=== PATIENT | female | born 1945 | race Caucasian/White ===

== ENCOUNTER 2021-11-17 06:59 | Emergency (ER) | payer MEDICARE, SELFPAY ==
[2021-11-17 07:01] VITALS: BP 187/90; PULSE 122; RESP 20; TEMP 37; O2SAT 95; BMI 27.4
--- NOTE | 2021-11-17 07:52 | ECG_ITS ---
Test Reason : ABNL LABS Blood Pressure : / mmHG Vent. Rate : 098 BPM Atrial Rate : 098 BPM P-R Int : 136 ms QRS Dur : 074 ms QT Int : 328 ms P-R-T Axes : 073 034 066 degrees QTc Int : 418 ms Normal sinus rhythm with sinus arrhythmia Possible Left atrial enlargement Borderline ECG When compared with ECG of 13-AUG-2016 10:25, No significant change was found Referred By: Regina Gaona Electronically Signed By:VERNON HOWARD
--- NOTE | 2021-11-17 08:38 | ED_ITS ---
HPI - Recheck/Abnormal Lab/Rx General Chief Complaint: Recheck/Abnormal Lab/Rx Stated Complaint: blood work to check potassium Time Seen by Provider: 11/17/21 07:52 Source: patient Mode of arrival: ambulatory Limitations: no limitations History of Present Illness HPI narrative: 76-year-old female with history of hypertension and hyperlipidemia presents to the ER for evaluation of hyperkalemia on routine labs that were done yesterday by her primary care doctor. She reports she has been on lisinopril for several years and never had an issue with high potassium. She does not have any symptoms, including no chest pain, no shortness of breath, no muscle aches or cramping. She has been eating and drinking normally. No changes in her daily routine or diet. MD complaint: abnormal lab Initial visit (ago): day(s) Returns today for: called because of abnormal lab/test Description of abnormal result: Hyperkalemia, unknown value Symptoms since prior visit: no new symptoms Context: called for abnormal lab result Associated symptoms: none Related Data Allergies Allergy/AdvReac Type Severity Reaction Status Date / Time No Known Allergies Allergy Unverified 12/23/19 14:56 [No Known Allergies*] Review of Systems Review of Systems: Constitutional: No Fever, No Chills ENT/Mouth: No sore throat, No Rhinorrhea, No Swallowing Difficulty Cardiovascular: No Chest Pain, No SOB, No Orthopnea, No Edema Respiratory: No Cough, No Sputum, No Wheezing, No dyspnea Gastrointestinal: No Nausea, No Vomiting, No Diarrhea, No abdominal Pain Genitourinary: No Dysuria, No Urinary Frequency, No Hematuria Musculoskeletal: No joint pain, No Myalgias Skin: No Skin Lesions, No rash Neuro: No Weakness, No Numbness, No Dizziness, No Headache Psych: No Anxiety/Panic, No Depression Heme/Lymph: No Bruising, No Lymphadenopathy Endocrine: No Polyuria, No Polydipsia PMFSH Social History Social History Patient Tobacco Use Status: Former Tobacco user Use of substances other than those prescribed or required for medical reasons: No Advance Directives: Yes Advance Directives Information Provided: Yes Advance Directives on File: No Physical Exam Vital Signs: Vital Signs: Last Vital Signs Temp 98.6 F 11/17/21 07:01 Pulse 82 11/17/21 09:01 Resp 16 11/17/21 09:01 BP 153/83 H 11/17/21 09:01 Pulse Ox 96 11/17/21 09:01 O2 Del Method 11/17/21 09:01 BMI result Body Mass Index 27.4 Appearance: Alert. Oriented X3. No acute distress. Eyes: Pupils equal, round and reactive to light. ENT: Pharynx normal. Neck: Normal inspection. Neck supple. CVS: Normal heart rate and rhythm. Pulses normal. Respiratory: No respiratory distress. Breath sounds normal. Abdomen: Soft and nontender. +BS x4 Skin: Skin warm and dry. Normal skin color. Normal skin turgor. No rashes. Extremities: No lower extremity edema. Neuro: Oriented X 3. No motor deficit. No sensory deficit. Course Course Course Narrative: 76-year-old female with history of hypertension hyperlipidemia presents to the ER for evaluation of hyperkalemia. Unknown lab value that was drawn yesterday. Her EKG has very slight new peaked T-waves compared to prior EKG in 2017. She is tachycardic on arrival, most likely due to anxiety. Her heart rates have normalized. Will plan to recheck her potassium here, start IV fluids now. Reevaluation(s) Reevaluation #1: Patient's lab workup is returning unremarkable. Her potassium is 4.2. Suspect that her hyperkalemia that was noted on lab work yesterday was due to hemolysis. Patient reports of her bottom as had a hard time and was shaking the tube after the blood was drawn. At this time patient is stable for discharge home, safe to continue her lisinopril at this time. She has appoint with her PCP on Friday will follow-up with them. MDM - Recheck/Abnormal Lab/Rx Medical Records Attestation: I reviewed the patient's medical records. Lab Data Attestation: I reviewed the patient's lab results. Result diagrams: 11/17/21 08:36 11/17/21 08:36 Labs: Lab Results 11/17/21 11/17/21 Range/Units 08:36 08:36 WBC 6.2 (4.8-10.8) X10*3/uL RBC 4.54 (4.20-5.50) X10*6/uL Hgb 14.2 (12.0-16.0) g/dl Hct 44.8 (37.0-47.0) % MCV 98.7 H (80.0-98.0) fL MCH 31.3 (27.0-33.0) pg MCHC 31.7 (31.0-35.0) g/dl RDW 13.7 (11.0-16.0) % Plt Count 237 (160-400) X10*3/uL MPV 9.6 (9.4-12.3) fL Immature Gran % (Auto) 0.3 (0.0-0.4) % Neut % (Auto) 78.8 H (45-73) % Lymph % (Auto) 9.6 L (20-40) % [place] % (Auto) 8.6 (2-11) % Eos % (Auto) 1.9 (0-4) % Baso % (Auto) 0.8 (0-2) % Lymph # (Auto) 0.6 L (1.2-4.9) X10*3/uL [place] # (Auto) 0.5 (0.1-1.2) X10*3/uL Eos # (Auto) 0.1 (0.0-0.4) X10*3/uL Baso # (Auto) 0.1 (0.0-0.2) X10*3/uL Abs Immat Gran (auto) 0.02 (0.00-0.03) X10*3/uL Absolute Neuts (auto) 4.9 (2.0-8.3) x10*3/uL Absolute Nucleated RBC 0.000 (0.0-0.012) X10*3/uL Nucleated RBC % (auto) 0.0 (0.0-0.2) /100WBC Sodium 142 (135-145) mmol/L Potassium 4.2 (3.3-5.1) mmol/L Chloride 105 (96-108) mmol/L Carbon Dioxide 24 (22-29) mmol/L Anion Gap 17 (12-20) BUN 13 (9-16) mg/dL Creatinine 0.83 (0.5-1.4) mg/dL Estim Creat Clear Calc 60.2 Estimated GFR > 60 Random Glucose 119 H (60-115) mg/dL Calcium 9.2 (8.4-10.2) mg/dL ECG Data Attestation: I personally reviewed and interpreted this ECG as follows: ECG interpretation date: 11/17/21 ECG interpretation time: 09:09 Prior ECG tracings: available for review Interpretation: Normal sinus rhythm with sinus arrhythmia, ventricular rate 90 beats per minute, normal RI interval, normal QTC, mildly elevated peaked T-wave in lead to, V3, V4, V5. Critical Care Time Critical Care Time Critical Care Time: No Discharge Plan Discharge Clinical Impression: Hypertension Patient Disposition: Home, Self-Care Instructions: Chronic Hypertension (ED) Additional Instructions: Your lab work today was unremarkable, including a potassium that was normal at 4.2. Recommend following up with her primary get care doctor as scheduled on Friday. It is safe for you to continue all of your previously prescribed medications. If you develop new or worsening symptoms call 911 or come back to the ER for further evaluation. Referrals: Lilia Cabrera CNP [Primary Care Provider] - (Follow-up hyperkalemia)
[2021-11-17 08:41] LABS: MANUAL DIFF FLAG NO
[2021-11-17 08:43] LABS: Basophils Absolute Auto 0.1 X10*3/uL (0.0-0.2); Basophils Percent Auto 0.8 % (0-2); Eosinophils Absolute Auto 0.1 X10*3/uL (0.0-0.4); Eosinophils Percent Auto 1.9 % (0-4); Hematocrit 44.8 % (37.0-47.0); Hemoglobin 14.2 g/dl (12.0-16.0); Imm Gran Abs Auto 0.02 X10*3/uL (0.00-0.03); Imm Gran Pct Auto 0.3 % (0.0-0.4); Lymphocytes Absolute Auto 0.6 X10*3/uL (1.2-4.9); Lymphocytes Percent Auto 9.6 % (20-40); Mean Corpuscular HGB Conc 31.7 g/dl (31.0-35.0); Mean Corpuscular Hemoglobin 31.3 pg (27.0-33.0); Mean Corpuscular Volume 98.7 fL (80.0-98.0); Mean Platelet Volume 9.6 fL (9.4-12.3); Monocytes Absolute Auto 0.5 X10*3/uL (0.1-1.2); Monocytes Percent Auto 8.6 % (2-11); Neutrophils Absolute Auto 4.9 x10*3/uL (2.0-8.3); Neutrophils Percent Auto 78.8 % (45-73); Platelet Count 237 X10*3/uL (160-400); Red Blood Count 4.54 X10*6/uL (4.20-5.50); Red Cell Distribution Width 13.7 % (11.0-16.0); White Blood Count 6.2 X10*3/uL (4.8-10.8)
[2021-11-17] MEDS: 0.9 % Sodium Chloride 1,000 ML 999 ML IVCONT (08:58)
[2021-11-17] MEDS: Calcium Gluconate/NaCl,Iso-Osm 1 GM/50 ML PLAST..BAG IV (08:58)
[2021-11-17 08:59] LABS: Anion Gap 17 (12-20); Blood Urea Nitrogen 13 mg/dL (9-16); Calcium 9.2 mg/dL (8.4-10.2); Carbon Dioxide 24 mmol/L (22-29); Chloride 105 mmol/L (96-108); Creatinine Clr Calc Pharmacy 60.2; Estimated Glomerular Filt Rate > 60; Glucose Random 119 mg/dL (60-115); Potassium 4.2 mmol/L (3.3-5.1); Sodium 142 mmol/L (135-145)
[2021-11-17 09:01] VITALS: BP 153/83; PULSE 82; RESP 16; O2SAT 96
== END 2021-11-17 09:25 | disposition home or self-care (01) ==
PROVIDERS: Emergency Provider Student in an Organized Health Care Education/Training Program; PCP Nurse Practitioner Family
DX: I10 Essential (primary) hypertension (principal); R00.0 Tachycardia, unspecified; E78.5 Hyperlipidemia, unspecified; Z79.899 Other long term (current) drug therapy; Z87.891 Personal history of nicotine dependence
CPT/HCPCS: 36415; 80048; 85025; 93005; 96365; 99284; 99285; J0610

== ENCOUNTER 2022-02-18 10:14 | Emergency (ER) | payer MEDICARE, SELFPAY ==
--- NOTE | ~2022-02-18 | XR_ITS ---
EXAMINATION: XR HIP, RIGHT CLINICAL INFORMATION: Pain and inability to bear weight. COMPARISON: None TECHNIQUE: AP and frog-leg lateral views of the right hip and an AP view of the pelvis are submitted. FINDINGS: Bones and soft tissues are normal. No fracture. Alignment is anatomic. The bilateral hip joint spaces are well-maintained. There is a small enthesophyte arising from the greater tuberosity of the proximal right femur. The sacroiliac joints are symmetric and intact. The pubic symphysis is intact. There are iliofemoral atherosclerotic calcifications. XR/XR hip RT w PEL1V IMPRESSION: Unremarkable right hip and AP pelvis.
[2022-02-18 10:30] VITALS: BP 180/84; PULSE 92; RESP 17; TEMP 36.6; O2SAT 98; BMI 25.0
--- NOTE | 2022-02-18 13:11 | ED.EXTPRO ---
HPI - Extremity Problem General Chief complaint: Extremity Injury, Upper Stated complaint: R leg pain Time Seen by Provider: 02/18/22 13:11 Source: patient Mode of arrival: wheelchair Limitations: no limitations History of Present Illness HPI Narrative: Patient is a 76 year old assigned female at with no reported medical history presenting to the emergency department today with right hip pain. Patient states that approximately 1 year ago, she fell down some stairs and landed on her right side. Patient states that she was evaluated then and told that everything was OK. Patient states that it had gotten better but over the last few days, her right hip has been getting painful. Patient states it is hurtful to walk on it. Patient denies any dizziness, lightheadedness, abdominal pain, nausea, vomiting, fever, chills, blurry vision, double vision, loss of vision, chest pain, difficulty breathing, shortness of breath, back pain, night sweats, pain with urination, increased urinary frequency, increased urinary urgency, blood in her urine or stool, syncope or a near syncopal episode, recent trauma or falls, bowel incontinence, bladder incontinence, bowel retention, bladder retention, or any other complaints at this time. MD Complaint: extremity pain Onset (ago): day(s) Pain Consistency: constant Location: right and lower extremity Severity scale (1-10): 4 Quality: aching and dull Radiation: none Relieving factors: nothing Exacerbating factors: range of motion, weight bearing and walking Associated symptoms: denies other symptoms Related Data Previous Rx's Medication Instructions Recorded prednisone 20 mg tablet 20 mg PO DAILY 7 days #7 tabs 02/18/22 Allergies Allergy/AdvReac Type Severity Reaction Status Date / Time No Known Allergies Allergy Unverified 12/23/19 14:56 [No Known Allergies*] Review of Systems Constitutional: Constitutional: Reports no additional constitutional complaints, Denies chills, Denies fever(s) and Denies night sweats Eyes: Eyes: Reports no additional eye complaints, Denies blurry vision, Denies change in vision, Denies diplopia, Denies eye discharge, Denies loss of vision and Denies eye pain ENT: Denies dizziness Cardiovascular: Cardiovascular: Reports no additional cardiovascular complaints, Denies chest pain, Denies lightheadedness, Denies Loss of Consciousness and Denies dyspnea Respiratory: Respiratory: Reports no additional respiratory complaints and Denies dyspnea Gastrointestinal: Gastrointestinal: Reports no additional gastrointestinal complaints, Denies abdominal pain, Denies melena, Denies hematochezia, Denies change in bowel habits and Denies change in stool character Genitourinary: Genitourinary: Denies hematuria, Denies urinary frequency, Denies dysuria, Denies urinary incontinence, Denies urinary hesitancy and Denies urinary urgency Musculoskeletal: Musculoskeletal: Reports no additional musculoskeletal complaints, Denies numbness and Denies tingling Comments: right hip pain Neurologic: Denies dizziness, Denies loss of vision, Denies numbness and Denies tingling Psychiatric: Psychiatric: Reports no additional psychiatric complaints Endocrine: Endocrine: Reports no additional endocrine complaints Hematologic/Lymphatic: Hematologic/Lymphatic: Reports no additional hematologic/lymphatic complaints Allergic/Immunologic: Allergic/Immunologic: Reports no additional allergic/immunologic complaints PMFSH Past Medical History Attestation statement: The following information was validated with the patient. Source: old records reviewed Social History Social History Patient Tobacco Use Status: Former Tobacco user Advance Directives: Yes Advance Directives Information Provided: Yes Advance Directives on File: No Physical Exam Vital Signs: Vital Signs: Last Vital Signs Temp 98 F 02/18/22 10:30 Pulse 92 02/18/22 10:30 Resp 17 02/18/22 10:30 BP 180/84 H 02/18/22 10:30 Pulse Ox 98 02/18/22 10:30 O2 Del Method 02/18/22 10:30 BMI result Body Mass Index 25.0 Const: General: cooperative, no acute distress, alert and awake Nutritional Appearance: well nourished Orientation/consciousness: patient oriented x3 Limitations: no limitations HEENT: Head: Yes normal to inspection and Yes atraumatic Ears: hearing grossly normal bilaterally and external ears normal General nose exam: Normal external nose present, no nasal discharge noted and no epistaxis Face and sinus: Yes normal facial exam, No abrasion and No laceration Mouth: Normal oral and palatal mucosa present, no drooling and no muffled voice Eyes: General: appearance normal, both eyes and all related structures Periorbital: periorbital findings normal Eyelids: Yes eyelids normal Conjunctivae: conjunctivae normal Pupils: Equal, round and reactive pupils present EOM: EOMs intact bilaterally Neck: Neck: Yes normal visual inspection, Yes full ROM and Yes no lymphadenopathy Chest: Chest palpation & inspection: normal inspection of the chest Resp: Effort & Inspection: normal respiratory effort and able to speak in complete sentences Auscultation: clear to auscultation bilaterally Cardio: Rate: regular rate Rhythm: regular rhythm GI: Inspection: Yes normal to inspection Neuro: General: patient oriented x3 and moves all extremities Cranial nerves: Yes Equal, round and reactive pupils present Cognition (Neuro): normal cognition Motor exam (neuro): 5/5 motor strength present throughout Sensory Exam: Normal double simultaneous stimulation for sensation Coordination: [id number] test normal Extrem: General: Yes normal to inspection, Yes full ROM and Yes capillary refill normal Psych: Appearance: grossly normal Mental Status: mental status grossly normal Affect: normal affect Attitude: cooperative Thought process: Normal thought process present Thought content: Normal thought content present Insight: Good insight present (Psych) Medications Administered Discontinued Medications Generic Name Dose Route Start Last Admin Trade Name Freq PRN Reason Stop Dose Admin Prednisone 20 mg 02/18/22 13:26 02/18/22 13:37 Prednisone 20 Mg Tablet PO 02/18/22 13:27 20 mg ONCE ONE Administration MDM - Extremity (Nontraumatic) MDM Narrative Medical decision making narrative: Patient is a 76 year old assigned female at with no reported medical history presenting to the emergency department today with right hip pain. Patient's physical exam was unremarkable. Patient's right hip x-ray showed no acute process. Patient's clinical presentation is most consistent with worsening arthritis. I explained my physical exam findings as well as all test results to the patient. I answered all questions asked by the patient. I stressed the importance of the patient taking her medication as prescribed. I stressed the importance of the patient following up with her primary care provider and an orthopedic provider. I stressed the importance of the patient returning to the emergency department immediately if her symptoms were to worsen or if she were to develop any dizziness, shortness of breath, difficulty breathing, chest pain, blurry vision, loss of vision, nausea, vomiting, abdominal pain, fever, chills, back pain, or any other complaints. Patient verbalized agreement and understanding with this treatment plan and discharge. Medical Records Attestation: I reviewed the patient's medical records. Imaging Data Right hip x-ray: Attestation: I personally reviewed and interpreted this imaging study as follows: My impression: No acute mile process. Radiologist's impression: EXAMINATION: XR HIP, RIGHT CLINICAL INFORMATION: Pain and inability to bear weight. COMPARISON: None TECHNIQUE: AP and frog-leg lateral views of the right hip and an AP view of the pelvis are submitted. FINDINGS: Bones and soft tissues are normal. No fracture. Alignment is anatomic. The bilateral hip joint spaces are well-maintained. There is a small enthesophyte arising from the greater tuberosity of the proximal right femur. The sacroiliac joints are symmetric and intact. The pubic symphysis is intact. There are iliofemoral atherosclerotic calcifications. XR/XR hip RT w PEL1V IMPRESSION: Unremarkable right hip and AP pelvis. Dictated By: Danny Gonzalez MD Signed By: Electronically signed by Danny Gonzalez MD 02/18/22 1220 Procedures Orthopedic Splinting/Casting Injury #1: Side: right Lower Extremity Injury Location: lower leg Other Orthopedic Equipment: crutches Discharge Plan Discharge Clinical Impression: Acute hip pain Patient Disposition: Home, Self-Care Instructions: Hip Pain (ED) Additional Instructions: Follow up with your primary care provider and your orthopedic provider. Return to the emergency department immediately if your symptoms worsen or if you develop any dizziness, shortness of breath, difficulty breathing, chest pain, blurry vision, loss of vision, nausea, vomiting, abdominal pain, fever, chills, back pain, or any other complaints. Prescriptions: New prednisone 20 mg tablet 20 mg PO DAILY 7 Days Qty: 7 0RF Referrals: [facility] [place] [facility] [Provider Group] (Call to establish and follow up with an orthopedic provider. ) Lilia Cabrera CNP [Primary Care Provider] - Interventions: ED Discharge Assessment Last Done: 02/18/22 14:13 Discharge Date/Time: 02/18/22 14:15 Print Language: Estonian
[2022-02-18] MEDS: predniSONE 20 MG TABLET PO (13:37)
== END 2022-02-18 14:15 | disposition home or self-care (01) ==
PROVIDERS: Emergency Provider Emergency Medicine Emergency Medical Services; PCP Nurse Practitioner Family
DX: M25.551 Pain in right hip (principal)
CPT/HCPCS: 73502; 99283

== ENCOUNTER → 2022-03-05 08:08 | Outpatient (BNVA) | payer MEDICARE, SELFPAY | PROVIDERS: PCP Nurse Practitioner Family; Visit Provider Physician Assistant | DX: M25.551 Pain in right hip (principal); M54.16 Radiculopathy, lumbar region | CPT/HCPCS: 99202 ==

== ENCOUNTER → 2022-04-15 14:47 | Outpatient (BNVA) | payer MEDICARE, SELFPAY | PROVIDERS: PCP Nurse Practitioner Family; Visit Provider Nurse Practitioner Family | DX: M25.551 Pain in right hip (principal); M53.3 Sacrococcygeal disorders, not elsewhere classified; M46.1 Sacroiliitis, not elsewhere classified; M47.816 Spondylosis without myelopathy or radiculopathy, lumbar region; M85.80 Other specified disorders of bone density and structure, unspecified site; I10 Essential (primary) hypertension; E03.9 Hypothyroidism, unspecified | CPT/HCPCS: 99202 ==

== ENCOUNTER 2022-07-15 10:00 | Outpatient (RCR) | payer MEDICARE, SELFPAY ==
--- NOTE | 2022-03-18 13:46 | MHC.PT.EP ---
[facility] [place] Office [place] [facility] [place] Office [address] Naveed Coburn [address] [phone] F: [phone] F: [phone] F: [phone] F: [phone] Physical Therapy Plan of Care Date of Evaluation: Date of Surgery: N/A Diagnosis: radiculopathy, lumbar region Pain in right hip Assessment: Pt is a pleasant and motivated 76yo F who presents to PT with R hip/low back pain. She had a fall down the stairs ~1 year ago, pain improved but recently became exacerbated. Xrays negative for fracture. She presents to PT with current impairments in pain, decreased ROM, decreased hip/glute strength, decreased core stabilization, decreased balance and impaired gait. She is limited functionally by prolonged standing, walking, stair navigation, and sleeping. She is an excellent candidate for skilled PT in order to address current impairments to facilitate return to PLOF. She is recommended to be seen 2x/week for 4 weeks and will be reassessed at that time. Frequency and Duration: The patient will be seen 2x/week for 4 weeks Short Term Goals: Pt will be I with HEP to promote self management of symptoms Pt will improve R glute med strength to at least 4-/5 Shelter Goals: Pt will achieve R glute med strength at least 4/5 to assist with standing functional tasks Pt will perform prolonged standing and walking > 30 min on even and uneven surfaces with LRAD with minimal to no pain Pt will demonstrate improvements in function as evidenced by statistically significant improvements in Modified Oswestry Low Back Pain Disability Questionnaire Treatment Plan: Modalities to reduce pain, spasms and effusion. Manual therapy to restore motion and function. Therapeutic exercise to improve strength and flexibility. Neuromuscular re-education for posture and balance. Therapeutic activities to return to functional activities of daily living. Electronically signed by: Mckayla Rios, PT, DPT Please sign and return to therapist. Thank you for your referral.
--- NOTE | 2022-07-15 12:29 | MHC.PT.DC ---
[facility] [place] [facility] [place] Office [place] Office [address] Naveed Coburn [address] [phone] F: [phone] F: [phone] F: [phone] F: [phone] Physical Therapy Discharge Report Diagnosis: radiculopathy, lumbar region Pain in right hip Date of Surgery: N/A Date of Evaluation: 03/18/22 Date of Discharge: 07/15/22 Treatments to Date: 21 Cancellations to Date: No Shows to Date: Discharge Status: Achieved Goals Improved Function Independent with HEP Discharge Summary: Pt has made excellent progress since SOC. She has met her STGs and LTGs. She has demonstrated improvements in hip strength and is able to ambulate longer distances without SPC. She improved her score on Modified Oswestry Low Back Pain Disability Questionnaire from 15/50 on initial PT evaluation to 1/50 today on D/C. She is I with HEP. Pt is being D/C from skilled PT at this time. Pt has printed copy of updated HEP. Pt reports no further questions or concerns for PT. Electronically signed by: Mckayla Rios, PT, DPT Please sign and return to therapist. Thank you for your referral.
== END 2022-07-15 12:28 | disposition home or self-care (01) ==
LOC: HO.PT 10:00
PROVIDERS: PCP Nurse Practitioner Family; Visit Provider Physician Assistant
DX: M54.16 Radiculopathy, lumbar region (principal); M25.551 Pain in right hip
CPT/HCPCS: 97110; 97112; 97140; 97162; 97530

== ENCOUNTER 2023-05-08 10:00 | Outpatient (RCR) | payer MEDICARE, SELFPAY | END 2023-06-09 10:57 | disposition home or self-care (01) | LOC: HO.PT 10:00 | PROVIDERS: PCP Nurse Practitioner Family; Visit Provider Physician Assistant | DX: M70.61 Trochanteric bursitis, right hip (principal) | CPT/HCPCS: 97110; 97112; 97161; 97530; 97535 ==